=== PATIENT | male | born 1955 ===

== ENCOUNTER 2023-04-04 00:59 | Emergency (ER) | payer MEDICARE, SELFPAY ==
[2023-04-04] VITALS (7 sets, daily range): BP systolic 154–217; BP diastolic 91–114; PULSE 71–87; RESP 18–23; TEMP 36.6; O2SAT 93–99; BMI 36.6
--- NOTE | 2023-04-04 01:22 | ED_ITS ---
Documented by User: Shen Jackson DO 04/04/23 23:10 HPI - Back Pain/Injury 2 General: Chief Complaint: Back Pain/Injury Stated Complaint: Pain Lower Back to ABD Pain Time Seen by Provider: 04/04/23 01:00 History of Present Illness: Patient presents to the ER tonight with complaints of pain in his right lateral back, radiates to his right lateral front. Patient states the pain is deep and is not reproducible or changeable with palpation. Patient thinks he might of ate something bad about 930 when his pain started. Patient's ate the same food and she is not having this pain. Patient said he thought belching would help but it did not. Patient is nauseous and has vomited. Patient denies any urinary symptoms or changes in bowel habits. Patient does not get this pain before. Review of Systems 2 General: Reports: 10 or more systems reviewed and unremarkable except in HPI and below PFSH ED 2 PFSH: Social History Smoking and tobacco/nicotine status: never used tobacco/nicotine Second hand smoke exposure: No Alcohol intake: never Substance/Drug Use: never Adopted: No Caregiver/support person: No Lives independently: Yes Household members: spouse Housing: Manufactured/Mobile home Marital status: Number of children: 2 Highest education level completed: Some College, No Degree service: Yes status: [employer] branch: [employer] Current occupational status: unemployed Physical Exam 2 Const: COMMON NORMALS: no acute distress, average body habitus, patient oriented x3, no limitations, healthy appearing, alert and well nourished HENMT: COMMON NORMALS: normocephalic, atraumatic, hearing grossly normal bilaterally, external ears normal, Normal external nose present, moist oral mucous membranes and oropharynx normal HEAD & SCALP: normocephalic and atraumatic NOSE: Normal external nose present EXTERNAL EAR: Yes external ears normal Neck/C-Spine: COMMON NORMALS: no JVD Chest: COMMONS NORMALS: normal inspection of the chest and normal palpation of entire chest wall Resp: COMMON NORMALS: normal respiratory effort, No retractions, No use of accessory muscles and clear to auscultation bilaterally AUSCULTATION: clear to auscultation bilaterally Cardio: COMMON NORMALS: no JVD, regular rate, regular rhythm, S1 normal heart sound present, S2 normal heart sound present, No gallops present (Cardio), No clicks present (Cardio), No murmurs present (Cardio) and No rub (Cardio) R ATE: regular rate RHYTHM: regular rhythm HEART SOUNDS: S1 normal heart sound present and S2 normal heart sound present GI: COMMON NORMALS: Normal to inspection, nondistended, normoactive bowel sounds present, Soft to palpation, non-tender, No hepatosplenomegaly present, no masses and no bruits PALPATION: Yes Soft to palpation and Yes No hepatosplenomegaly present Back/Pelvis: OTHER: Nontender to palpation over lumbar spinous processes and paraspinal muscles. Neuro: COMMON NORMALS: patient oriented x3 SENSORIUM/ORIENTATION: Yes alert Course 2 Vital Signs: Vital signs: Vital Signs Temperature 97.9 F 04/04/23 01:04 Pulse Rate 74 04/04/23 07:40 Respiratory Rate 18 04/04/23 06:14 Blood Pressure 165/95 04/04/23 07:40 Pulse Oximetry 97 04/04/23 07:40 Oxygen Delivery Me thod Room Air 04/04/23 07:40 MDM - Back Pain/Injury Medical Decision Making Patient presents to the ER with right flank pain. Lab work and urine was obtained which was essentially unremarkable. Patient did have significant pain a CT scan of the abdomen pelvis was obtained that showed perinephric stranding perinephric ascites distal punctate right ureteral calcified stone went on to say forniceal rupture cannot be excluded and recommended a CT urogram, additional CT scan of the abdomen and pelvis was obtained with radiology making some changes to focus more in the renal pelvis and showed no contrast outside the renal collecting system. At this time patient was transferred over to incoming daytime For evaluation and treatment. Patient was discharged home on pain medicine and antibiotics. Differential Diagnosis Unlikely lumbar radiculopathy, sciatica, strain of lumbar region, renal colic, pyelonephritis, thoracic back pain, AAA or discitis Medical Records I reviewed the patient's medical records. Labs I reviewed the patient's lab results. 04/04/23 01:41 04/04/23 01:41 Radiology Impressions Abdomen/Pelvis CT 04/04/23 04:45 IMPRESSION: No contrast outside the renal collecting system to suggest forniceal rupture. Redemonstrated inflammatory changes of the right kidney detailed better on the prior CT of the abdomen and pelvis performed on 04/04/2023. Again superimposed infection can not be excluded. Laboratory Results WBC 10.44 10^3/uL (3.29-11.43) 04/04/23 01:41 RBC 5.03 10^6/uL (3.85-5.65) 04/04/23 01:41 Hgb 14.90 g/dL (11.27-16.99) 04/04/23 01:41 Hct 44.0 % (37-53) 04/04/23 01:41 MCV 87.5 fl (82-101) 04/04/23 01:41 MCH 29.6 pg (27-33) 04/04/23 01:41 MCHC 33.9 g/dL (30-55) 04/04/23 01:41 RDW 12.7 % (12.1-15.1) 04/04/23 01:41 Plt Count 237 10^3/cmm (157-399) 04/04/23 01:41 MPV 11.6 fL (7.4-10.4) H 04/04/23 01:41 Neut % (Auto) 82.2 % 04/04/23 01:41 Lymph % (Auto) 10.1 % 04/04/23 01:41 Drew % (Auto) 5.7 % 04/04/23 01:41 Eos % (Auto) 1.1 % 04/04/23 01:41 Baso % (Auto) 0.5 % 04/04/23 01:41 Neut # (Auto) 8.60 10^3/uL (1.8-7.7) H 04/04/23 01:41 Lymph # (Auto) 1.1 10^3/uL (0.8-4.8) 04/04/23 01:41 Drew # (Auto) 0.6 10^3/uL (0.2-0.9) 04/04/23 01:41 Eos # (Auto) 0.1 10^3/uL (0.0-0.8) 04/04/23 01:41 Baso # (Auto) 0.1 10^3/uL (0.0-0.1) 04/04/23 01:41 Nucleated RBC % (auto) 0 % 04/04/23 01:41 Nucleated RBCs # 0.0 /100WBC 04/04/23 01:41 Sodium 140 mmol/L (136-145) 04/04/23 01:41 Potassium 4.7 mmol/L (3.5-5.1) 04/04/23 01:41 Chloride 102 mmol/L (98-107) 04/04/23 01:41 Carbon Dioxide 27 mmol/L (22-29) 04/04/23 01:41 Anion Gap 15.7 (5-19) 04/04/23 01:41 BUN 17 mg/dL (8-23) 04/04/23 01:41 Creatinine 1.0 mg/dL (0.7-1.2) 04/04/23 01:41 GFR Calculation 75.0 mL/min (90-130) L 04/04/23 01:41 Glucose 122 mg/dL (65-115) H 04/04/23 01:41 Calculated Osmolality 293 mOsm/kg (285-295) 04/04/23 01:41 Lactic Acid 1.0 mmol/L (0.5-2.2) 04/04/23 05:00 Calcium 9.2 mg/dL (8.5-10.5) 04/04/23 01:41 Magnesium 2.3 mg/dL (1.7-2.3) 04/04/23 01:41 Total Bilirubin 1.3 mg/dL (0.15-1.2) H 04/04/23 01:41 AST 21 U/L (0-40) 04/04/23 01:41 ALT 14 U/L (0-41) 04/04/23 01:41 Alkaline Phosphatase 107 U/L (40-130) 04/04/23 01:41 Total Protein 7.9 g/dL (6.6-8.7) 04/04/23 01:41 Albumin 4.4 g/dL (3.5-5.2) 04/04/23 01:41 Globulin 3.5 g/dL (1.3-4.6) 04/04/23 01:41 Lipase 15 U/L (13-60) 04/04/23 01:41 Procalcitonin 0.03 ng/mL (0-0.5) 04/04/23 01:41 Urine Color Light yellow (Yellow) 04/04/23 01:56 Urine Appearance Clear (CLEAR) 04/04/23 01:56 Urine pH 8 (5-7) H 04/04/23 01:56 Ur Specific [place] 1.010 (1.005-1.030) 04/04/23 01:56 Urine Protein Neg (Negative) 04/04/23 01:56 Urine Glucose (UA) Norm (Normal) 04/04/23 01:56 Urine Ketones Negative (Negative) 04/04/23 01:56 Urine Blood Neg (Negative) 04/04/23 01:56 Urine Nitrate Negative (Negative) 04/04/23 01:56 Urine Bilirubin Neg (Negative) 04/04/23 01:56 Prot Sulfosalicylic Acd Negative (Negative) 04/04/23 01:56 Urine Urobilinogen Neg mg/dL (Negative) 04/04/23 01:56 Ur Leukocyte Esterase Negative (Negative) 04/04/23 01:56 All radiology interpretation(s) finalized by discharge Discharge Plan Discharge Patient Disposition: Home Clinical Impression: Right nephrolithiasis Condition: Stable Prescriptions: New hydrocodone-acetaminophen 5-325 mg tablet 1 tab PO Q6H PRN (Reason: pain) Qty: 20 0RF promethazine 25 mg tablet 25 mg PO Q6H PRN (Reason: nausea and vomiting) Qty: 20 0RF Flomax 0.4 mg capsule 0.4 mg PO BID Qty: 30 0RF No Action clindamycin HCl 300 mg capsule 300 mg PO TID 10 Days Qty: 30 0RF Discharge Orders: Discharge ED (Routine); Ordered 04/04/23 Ordered By: Yovani Villalobos Discharge Diet: Usual diet Discharge Activity: Increase activity as tolerated Patient Instructions: Kidney Stones (ED), Opioid Safety, Pain Management Activity Restrictions/Additional Instructions: Thank you for choosing [facility] for your healthcare needs today. Please realize this is an emergency room and that we are providing you with a medical screening exam and this may not be complete and all inclusive of all the testing and or work up that you may need to determine your ailment or severity of your illness. It is very important that you follow up as instructed or that you return to the Emergency Department should you have concerns or if your condition changes or worsens in any way. Case management make arrangements for follow-up with urology. If pain is uncontrolled return to the emergency room Coding Level of Care Code ED Gear Lapper for Tyrese Gentile Documented by User: Yovani Villalobos DO 04/05/23 05:23 HPI - Back Pain/Injury 2 General: Chief Complaint: Back Pain/Injury Stated Complaint: Pain Lower Back to ABD Pain Time Seen by Provider: 04/04/23 01:00 [facility] ED 2 PFSH: Social History Smoking and tobacco/nicotine status: never used tobacco/nicotine Second hand smoke exposure: No Alcohol intake: never Substance/Drug Use: never Adopted: No Caregiver/support person: No Lives independently: Yes Household members: spouse Housing: Manufactured/Mobile home Marital status: Number of children: 2 Highest education level completed: Some College, No Degree service: Yes status: [employer] branch: [employer] Current occupational status: unemployed Course 2 Vital Signs: Vital signs: Vital Signs Temperature 97.9 F 04/04/23 01:04 Pulse Rate 74 04/04/23 07:40 Respiratory Rate 18 04/04/23 06:14 Blood Pressure 165/95 04/04/23 07:40 Pulse Oximetry 97 04/04/23 07:40 Oxygen Delivery Me thod Room Air 04/04/23 07:40 MDM - Back Pain/Injury Medical Decision Making Patient presents to the ER with right flank pain. Lab work and urine was obtained which was essentially unremarkable. Patient did have significant pain a CT scan of the abdomen pelvis was obtained that showed perinephric stranding perinephric ascites distal punctate right ureteral calcified stone went on to say forniceal rupture cannot be excluded and recommended a CT urogram, additional CT scan of the abdomen and pelvis was obtained with radiology making some changes to focus more in the renal pelvis and showed no contrast outside the renal collecting system. At this time patient was transferred over to incoming daytime For evaluation and treatment. Patient was discharged home on pain medicine and antibiotics. Care assumed at change of shift. Patient has nephrolithiasis on CT scan with perinephric inflammation. We reviewed the films with on-call urology at [facility]. It urologist felt they were typical presenting symptoms for perinephric inflammation. We did delayed films there is no sign of extravasation. Pain is well-controlled discharged home on Flomax hydrocodone and promethazine. Follow- up with urology return if pain is not well-controlled Labs 04/04/23 01:41 04/04/23 01:41 Radiology Impressions Abdomen/Pelvis CT 04/04/23 04:45 IMPRESSION: No contrast outside the renal collecting system to suggest forniceal rupture. Redemonstrated inflammatory changes of the right kidney detailed better on the prior CT of the abdomen and pelvis performed on 04/04/2023. Again superimposed infection can not be excluded. Laboratory Results WBC 10.44 10^3/uL (3.29-11.43) 04/04/23 01:41 RBC 5.03 10^6/uL (3.85-5.65) 04/04/23 01:41 Hgb 14.90 g/dL (11.27-16.99) 04/04/23 01:41 Hct 44.0 % (37-53) 04/04/23 01:41 MCV 87.5 fl (82-101) 04/04/23 01:41 MCH 29.6 pg (27-33) 04/04/23 01:41 MCHC 33.9 g/dL (30-55) 04/04/23 01:41 RDW 12.7 % (12.1-15.1) 04/04/23 01:41 Plt Count 237 10^3/cmm (157-399) 04/04/23 01:41 MPV 11.6 fL (7.4-10.4) H 04/04/23 01:41 Neut % (Auto) 82.2 % 04/04/23 01:41 Lymph % (Auto) 10.1 % 04/04/23 01:41 Drew % (Auto) 5.7 % 04/04/23 01:41 Eos % (Auto) 1.1 % 04/04/23 01:41 Baso % (Auto) 0.5 % 04/04/23 01:41 Neut # (Auto) 8.60 10^3/uL (1.8-7.7) H 04/04/23 01:41 Lymph # (Auto) 1.1 10^3/uL (0.8-4.8) 04/04/23 01:41 Drew # (Auto) 0.6 10^3/uL (0.2-0.9) 04/04/23 01:41 Eos # (Auto) 0.1 10^3/uL (0.0-0.8) 04/04/23 01:41 Baso # (Auto) 0.1 10^3/uL (0.0-0.1) 04/04/23 01:41 Nucleated RBC % (auto) 0 % 04/04/23 01:41 Nucleated RBCs # 0.0 /100WBC 04/04/23 01:41 Sodium 140 mmol/L (136-145) 04/04/23 01:41 Potassium 4.7 mmol/L (3.5-5.1) 04/04/23 01:41 Chloride 102 mmol/L (98-107) 04/04/23 01:41 Carbon Dioxide 27 mmol/L (22-29) 04/04/23 01:41 Anion Gap 15.7 (5-19) 04/04/23 01:41 BUN 17 mg/dL (8-23) 04/04/23 01:41 Creatinine 1.0 mg/dL (0.7-1.2) 04/04/23 01:41 GFR Calculation 75.0 mL/min (90-130) L 04/04/23 01:41 Glucose 122 mg/dL (65-115) H 04/04/23 01:41 Calculated Osmolality 293 mOsm/kg (285-295) 04/04/23 01:41 Lactic Acid 1.0 mmol/L (0.5-2.2) 04/04/23 05:00 Calcium 9.2 mg/dL (8.5-10.5) 04/04/23 01:41 Magnesium 2.3 mg/dL (1.7-2.3) 04/04/23 01:41 Total Bilirubin 1.3 mg/dL (0.15-1.2) H 04/04/23 01:41 AST 21 U/L (0-40) 04/04/23 01:41 ALT 14 U/L (0-41) 04/04/23 01:41 Alkaline Phosphatase 107 U/L (40-130) 04/04/23 01:41 Total Protein 7.9 g/dL (6.6-8.7) 04/04/23 01:41 Albumin 4.4 g/dL (3.5-5.2) 04/04/23 01:41 Globulin 3.5 g/dL (1.3-4.6) 04/04/23 01:41 Lipase 15 U/L (13-60) 04/04/23 01:41 Procalcitonin 0.03 ng/mL (0-0.5) 04/04/23 01:41 Urine Color Light yellow (Yellow) 04/04/23 01:56 Urine Appearance Clear (CLEAR) 04/04/23 01:56 Urine pH 8 (5-7) H 04/04/23 01:56 Ur Specific [place] 1.010 (1.005-1.030) 04/04/23 01:56 Urine Protein Neg (Negative) 04/04/23 01:56 Urine Glucose (UA) Norm (Normal) 04/04/23 01:56 Urine Ketones Negative (Negative) 04/04/23 01:56 Urine Blood Neg (Negative) 04/04/23 01:56 Urine Nitrate Negative (Negative) 04/04/23 01:56 Urine Bilirubin Neg (Negative) 04/04/23 01:56 Prot Sulfosalicylic Acd Negative (Negative) 04/04/23 01:56 Urine Urobilinogen Neg mg/dL (Negative) 04/04/23 01:56 Ur Leukocyte Esterase Negative (Negative) 04/04/23 01:56 Discharge Plan Discharge Patient Disposition: Home Clinical Impression: Right nephrolithiasis Condition: Stable Prescriptions: New hydrocodone-acetaminophen 5-325 mg tablet 1 tab PO Q6H PRN (Reason: pain) Qty: 20 0RF promethazine 25 mg tablet 25 mg PO Q6H PRN (Reason: nausea and vomiting) Qty: 20 0RF Flomax 0.4 mg capsule 0.4 mg PO BID Qty: 30 0RF No Action clindamycin HCl 300 mg capsule 300 mg PO TID 10 Days Qty: 30 0RF Discharge Orders: Discharge ED (Routine); Ordered 04/04/23 Ordered By: Yovani Villalobos Discharge Diet: Usual diet Discharge Activity: Increase activity as tolerated Patient Instructions: Kidney Stones (ED), Opioid Safety, Pain Management Activity Restrictions/Additional Instructions: Thank you for choosing [facility] for your healthcare needs today. Please realize this is an emergency room and that we are providing you with a medical screening exam and this may not be complete and all inclusive of all the testing and or work up that you may need to determine your ailment or severity of your illness. It is very important that you follow up as instructed or that you return to the Emergency Department should you have concerns or if your condition changes or worsens in any way. Case management make arrangements for follow-up with urology. If pain is uncontrolled return to the emergency room Coding Level of Care Code ED Gear Lapper for Tyrese Gentile
[2023-04-04] MEDS: ondansetron 2 mg/ML SDV 2 mL 4 MG IVP ×2 (01:33→06:15)
[2023-04-04] MEDS: ketorolac 30 mg/mL INJ IVP (01:33)
[2023-04-04] MEDS: sodium chloride 0.9% 1,000 ML 999 ML IV (01:37)
[2023-04-04 01:46] LABS: Basophils # 0.1 10^3/uL (0.0-0.1); Basophils % 0.5 %; Eosinophils # 0.1 10^3/uL (0.0-0.8); Eosinophils % 1.1 %; Lymphocytes # 1.1 10^3/uL (0.8-4.8); Lymphocytes % 10.1 %; Mean Corpuscular HGB Conc 33.9 g/dL (30-55); Mean Corpuscular Hemoglobin 29.6 pg (27-33); Mean Corpuscular Volume 87.5 fl (82-101); Mean Platelet Volume 11.6 fL (7.4-10.4); Monocytes # 0.6 10^3/uL (0.2-0.9); Monocytes % 5.7 %; Neutrophils % 82.2 %; Nucleated Red Blood Cells % 0 %; Platelet Count 237 10^3/cmm (157-399); Red Blood Count 5.03 10^6/uL (3.85-5.65); Red Cell Distribution Width 12.7 % (12.1-15.1); White Blood Count 10.44 10^3/uL (3.29-11.43)
[2023-04-04 02:03] LABS: Alanine Aminotransferase 14 U/L (0-41); Albumin Level 4.4 g/dL (3.5-5.2); Alkaline Phosphatase 107 U/L (40-130); Blood Urea Nitrogen 17 mg/dL (8-23); Calcium 9.2 mg/dL (8.5-10.5); Carbon Dioxide 27 mmol/L (22-29); Chloride 102 mmol/L (98-107); Globulin 3.5 g/dL (1.3-4.6); Glucose 122 mg/dL (65-115); Lipase 15 U/L (13-60); Magnesium 2.3 mg/dL (1.7-2.3); Osmolality Calculated 293 mOsm/kg (285-295); Sodium 140 mmol/L (136-145); Total Bilirubin 1.3 mg/dL (0.15-1.2); Total Protein 7.9 g/dL (6.6-8.7)
[2023-04-04 02:04] LABS: Add Urine Microscopic? NO; Charge for UA Resulting for Rev
[2023-04-04 02:10] LABS: Anion Gap 15.7 (5-19); Aspartate Amino Transferase 21 U/L (0-40); Potassium 4.7 mmol/L (3.5-5.1)
[2023-04-04 02:10] LABS: Bilirubin Urine Neg (Negative); Blood Urine Neg (Negative); Glucose Urine UA Norm (Normal); Ketones Urine Negative (Negative); Leukocyte Esterase Urine Negative (Negative); Nitrate Urine Negative (Negative); Protein Urine Neg (Negative); Sulfosalicylic Acid Urine Negative (Negative); Urine Appearance Clear (CLEAR); Urine Color Light yellow (Yellow); Urobilinogen Urine Neg (Negative); pH Urine 8 (5-7)
--- NOTE | 2023-04-04 02:21 | CTR_ITS ---
PROCEDURE INFORMATION: Exam: CT Abdomen And Pelvis With Contrast Exam date and time: 04/04/2023 2:37 AM Age: 67 years old Clinical indication: Abdominal pain; Localized; Right; Prior surgery; Surgery date: 6+ months; Surgery type: Cyst removal anus; Additional info: Ruq/flank pain, n/v, elevated bilirubin TECHNIQUE: Imaging protocol: Computed tomography of the abdomen and pelvis with contrast. Radiation optimization: All CT scans at this facility use at least one of these dose optimization techniques: automated exposure control; mA and/or kV adjustment per patient size (includes targeted exams where dose is matched to clinical indication); or iterative reconstruction. Contrast material: OMNI 350; Contrast volume: 100 ml; Contrast route: INTRAVENOUS (IV); COMPARISON: No relevant prior studies available. RADIATION DOSE METRICS: Total DLP (mGy-cm): 953 FINDINGS: Lungs: Lingular scarring versus atelectasis. Mild dependent right basilar atelectasis. Heart: Base of heart is unremarkable as visualized. Coronary arteries: Mild calcified atherosclerotic disease of the visualized coronary vasculature. Liver: Normal. No mass. Gallbladder and bile ducts: Gallbladder is decompressed limiting evaluation. Pancreas: Normal. No ductal dilation. Spleen: Normal. No splenomegaly. Adrenal glands: Normal. No mass. Kidneys and ureters: The right kidney demonstrates a delayed nephrogram. There is significant surrounding perinephric fat stranding as well as a moderate amount of right perinephric simple ascites. Right kidney demonstrates [id number] hydronephrosis. The right ureter demonstrates mid distal ureterectasis. Just proximal to the right ureterovesicular junction there is a punctate calcification (series 3, image 76). Colonic diverticulosis without evidence of diverticulitis. Stomach and bowel: See Kidneys and ureters finding. Appendix: No evidence of appendicitis. Intraperitoneal space: See Kidneys and ureters finding. Vasculature: Mild calcified atherosclerotic disease of the visualized aorta and its major branches. Lymph nodes: Prominent pericaval lymphadenopathy, likely reactionary. Urinary bladder: Unremarkable as visualized. Reproductive: Unremarkable as visualized. Bones/joints: Mild scattered degenerative changes of the visualized osseous structures. Soft tissues: Unremarkable. CT/CT abdomen pelvis w con* [id number] IMPRESSION: 1. Right delayed nephrogram, perinephric stranding, perinephric simple ascites with [id number] hydronephrosis and distal punctate right ureter calcified nephrolith. Constellation of findings suggest obstructive uropathy, superimposed infection can not be excluded. Given moderate perinephric simple ascites, forniceal rupture can not be excluded, although there is no definitive evidence on this exam. CT urogram is the definitive study to exclude this entity. 2. Colonic diverticulosis without evidence of diverticulitis.
[2023-04-04] MEDS: hyDRALAzine 20 mg/mL INJ 1 mL IVP (02:23)
[2023-04-04] MEDS: iohexol 350 mg/mL 500 mL Btl (per mL) IV ×2 (02:41→05:17)
--- NOTE | 2023-04-04 04:45 | CTR_ITS ---
PROCEDURE INFORMATION: Exam: CT Abdomen And Pelvis With Contrast Exam date and time: 04/04/2023 5:05 AM Age: 67 years old Clinical indication: Pain and abnormal findings; Abnormal radiologic finding of the abdomen; Radiologic exam and body structure: CT abd/pelvis with contrast; Abdominal pain; Localized; Right; Prior surgery; Surgery date: 6+ months; Surgery type: Cyst removal anal; Patient HX: The following study is a urogram- patient had a scan a few hours ago with contrast. This exam includes a 130 delay and 10 minute delay. ; Additional info: Abnormal right kidney right flank pain TECHNIQUE: Imaging protocol: Computed tomography of the abdomen and pelvis with contrast. Radiation optimization: All CT scans at this facility use at least one of these dose optimization techniques: automated exposure control; mA and/or kV adjustment per patient size (includes targeted exams where dose is matched to clinical indication); or iterative reconstruction. Contrast material: OMNI 350; Contrast volume: 100 ml; Contrast route: INTRAVENOUS (IV); COMPARISON: CT abdomen pelvis w con* [id number] 04/04/2023 2:37 AM RADIATION DOSE METRICS: Total DLP (mGy-cm): 2652.64 FINDINGS: Lungs: Lingular scarring versus atelectasis. Mild dependent right basilar atelectasis. Heart: Base of heart is unremarkable as visualized. Coronary arteries: Mild calcified atherosclerotic disease of the visualized coronary vasculature. Liver: Normal. No mass. Gallbladder and bile ducts: Gallbladder is decompressed limiting evaluation. Pancreas: Normal. No ductal dilation. Spleen: Normal. No splenomegaly. Adrenal glands: Normal. No mass. Kidneys and ureters: Delayed images of the renal collecting system were obtained. No evidence of contrast outside the renal collecting system to suggest forniceal rupture. Redemonstrated inflammatory changes of the right kidney detailed better in the prior CT of the abdomen and pelvis performed on 04/04/2023. Stomach and bowel: Colonic diverticulosis without evidence of diverticulitis. Appendix: No evidence of appendicitis. Intraperitoneal space: See Kidneys and ureters finding. Vasculature: Mild calcified atherosclerotic disease of the visualized aorta and its major branches. Lymph nodes: Prominent pericaval lymphadenopathy, likely reactionary. Urinary bladder: Unremarkable as visualized. Reproductive: Unremarkable as visualized. Bones/joints: Mild scattered degenerative changes of the visualized osseous structures. Soft tissues: Unremarkable. CT/CT abdomen pelvis w con* [id number] IMPRESSION: No contrast outside the renal collecting system to suggest forniceal rupture. Redemonstrated inflammatory changes of the right kidney detailed better on the prior CT of the abdomen and pelvis performed on 04/04/2023. Again superimposed infection can not be excluded.
[2023-04-04 05:03] LABS: Procalcitonin 0.03 ng/mL (0-0.5)
[2023-04-04] MEDS: morphine 4 mg/mL SDV 1 mL IVP (06:14)
[2023-04-04] MEDS: ciprofloxacin 400 MG/200 ML PREMIX 200 MG IV (06:15)
== END 2023-04-04 07:57 | disposition home or self-care (01) ==
PROVIDERS: Emergency Medicine; Emergency Provider Family Medicine
DX: N20.0 Calculus of kidney (principal)
CPT/HCPCS: 74177; 80053; 81003; 83605; 83690; 83735; 84145; 85025; 96365; 96375; 96376; 99285; J0360; J0744; J1885; J2270; J2405; J7030; Q9967

== ENCOUNTER → 2024-07-27 09:30 | Outpatient (BNVA) | payer OTHER, SELFPAY | PROVIDERS: Referring Provider Nurse Practitioner Family; Visit Provider Physician Assistant | DX: M25.511 Pain in right shoulder (principal); M25.512 Pain in left shoulder; M19.011 Primary osteoarthritis, right shoulder; M19.012 Primary osteoarthritis, left shoulder | CPT/HCPCS: 73030; 99203 ==